=== PATIENT | male | born 1940 | race Caucasian/White ===

== ENCOUNTER 2017-04-29 15:50 | Emergency (ER) | payer MEDICARE, OTHER ==
[2017-04-29 16:23] LABS: BASOPHIL# 0.1 X 10^3uL (0.0-0.1); BASOPHILS 0.7 % (0.0-2.0); EOSINOPHILS 0.3 % (0.0-6.0); HEMATOCRIT 47.6 % (42.0-54.0); HEMOGLOBIN 16.3 g/dL (14.0-18.0); LYMPHOCYTES 9.2 % (20.0-40.0); LYMPHOCYTES# 0.8 X 10^3uL (0.8-3.8); MEAN CELL VOLUME 91.8 fL (80.0-100.0); MEAN CORPUS. HGB CONCENTRATION 34.1 g/dL (32.0-36.0); MEAN CORPUSCULAR HEMOGLOBIN 31.4 pg (29.0-35.0); MONOCYTES 9.6 % (2.0-10.0); MONOCYTES# 0.8 X 10^3uL (0.2-1.0); NEUTROPHILS 80.2 % (54.0-75.0); NEUTROPHILS# 6.8 X 10^3uL (2.6-6.7); RED BLOOD COUNT 5.18 X 10^6uL (4.20-6.10); RED CELL DISTRIBUTION WIDTH 15.1 % (11.5-14.5); WHITE BLOOD COUNT 8.5 X 10^3uL (3.9-10.7)
[2017-04-29 16:38] LABS: C-REACTIVE PROTEIN 87.2 mg/L (<10.0)
[2017-04-29 16:48] LABS: URIC ACID 5.3 mg/dL (3.5-8.5)
[2017-04-29] MEDS ORDERED: NORMAL SALINE 100 ML IV ONE (16:58)
[2017-04-29] MEDS ORDERED: ONDANSETRON HCL 4 MG/2 ML VIAL ONE (16:58)
[2017-04-29] MEDS ORDERED: AMPICILLIN/SULBACTAM 1.5 GM/10 ML VIAL IV ONE ×2 (16:58→23:00)
--- NOTE | 2017-04-29 17:37 | ER NURSING DOCUMENTATION ---
Nurse's Notes [facility] Name:Esequiel Ribeiro Jr Age:76 yrs Sex:Male :1940 Arrival Date:04/29/2017 Time:15:50 Bed1 Private MD: Diagnosis:Cellulitis of Hand-: Acute, Right Hand Presentation: 04/29 15:53 Acuity: CONG 3 st 16:00 Presenting complaint: Patient states: pt states he has had pain and swelling in the st right hand since yesterday. pt also states the hand has been warm pt denies any fevers or chills. Transition of care: Home. 16:00 Method Of Arrival: Private Vehicle st Triage Assessment: 16:00 General: Appears uncomfortable, Behavior is cooperative. Pain: Complains of pain in st right hand Pain currently is 9 out of 10 on a pain scale. Cardiovascular: No deficits noted. Respiratory: No deficits noted. GI: No deficits noted. Derm: right hand is reddened and warm to the touch. Musculoskeletal: Swelling present in right hand. Historical: - Allergies: No known drug Allergies; - Home Meds: 1. Coumadin Oral 2. Flomax Oral 3. Aspirin Oral 4. Amiodarone Oral 5. Nexium Oral 6. Primidone Oral 7. losartan oral 8. Lorazepam Oral 9. Lexapro Oral 10. temazepam Oral - PSHx: HEART SURGERY; - Tetanus: > 10 years will f/u with PCP. - Ebola Screening: : Patient denies exposure to infectious person. Patient denies travel to an Ebola-affected area in the 21 days before illness onset. . - Social history: Smoking status: Patient states was never smoker of tobacco. Patient uses alcohol occasionally. Patient/guardian denies using marijuana. Screenin:19 Infectious Disease Risk None. Abuse screen: Denies threats or abuse. Denies injuries st from another. pt feels safe at home. Nutritional screening: No deficits noted. Vital Signs: 16:18 BP 175 / 90; Pulse 71; Resp 18; Temp 98.6; Pulse Ox 92% on R/A; Pain 9/10; st 17:27 Pulse Ox 95% ; st 17:29 BP 157 / 74 (auto/); st [place] Coma Score: 16:47 Eye Response: spontaneous(4). Verbal Response: oriented(5). Motor Response: obeys cd commands(6). Total: 15. ED Course: 15:52 Patient arrived in ED. ama 15:53 Dalila Baxter, RN is Primary Nurse. co1 15:53 Triage completed. co1 16:12 Inserted peripheral IV: 20 gauge in left antecubital area and blood collected. st 16:19 Valuables Remains with patient Patient has correct armband on for positive st identification. Bed in low position. Pulse Ox - RN Monitoring Only NIBP On - RN Monitoring Only. 16:31 Second set of blood cultures drawn by me. st 16:39 Tre Mireles MD is Attending Physician. cd 16:54 Oxygen Oxygen administration via nasal cannula @ 2L/min. st 17:35 IV IV wrapped for d/c . st Administered Medications: 16:43 CANCELLED (Physician Discretion): Unasyn 3 grams IVPB once cd 16:51 Drug: Zofran 4 mg; Route: IVP; Infused Over: 2 mins; Site: left antecubital; st 17:35 Follow up: Response: Nausea is decreased st 16:53 Drug: Dilaudid 0.25 mg; Route: IVP; Site: left antecubital; st 17:35 Follow up: Response: Pain is decreased st 16:54 Drug: Unasyn 1.5 grams; Route: IVPB; Site: left antecubital; st 17:34 Follow up: IV Status: Completed infusion; IV Intake: 100ml st Intake: 17:34 IV: 100ml; Total: 100ml. st Outcome: 17:15 Discharge ordered by . cd 17:35 Discharged to home ambulatory. st 17:35 Condition: stable 17:35 Discharge instructions given to patient, Instructed on discharge instructions, follow up and referral plans. medication usage. 17:36 Patient [address] the ED[address] st 04/30 15:20 Discharge F/U Call: Unable to reach: left voicemail: mk2 Signatures: Tanya Rahman RN MEÑO st Dalila Baxter, RN RN co1 Tre Mireles MD MD cd Kruger, Meg, RN RN mk2 Erwin French, Reg Reg ama
--- NOTE | 2017-04-29 17:37 | ER PHYSICIAN DOCUMENTATION ---
Physician Documentation [facility] Name:Esequiel Ribeiro Jr Age:76 yrs Sex:Male :1940 Arrival Date:04/29/2017 Time:15:50 Bed1 Private MD: Tre Singh Disposition: 04/29 17:15 Chart complete. cd Disposition: 04/29/17 17:15 Discharged to Home/Self Care. Impression: Cellulitis of Hand - : Acute, Right Hand. - Condition is Good. - Discharge Instructions: CELLULITIS. - Medical Reconciliation form form. - Follow up: Emergency Department; When: Today; Reason: Recheck today's complaints, Continuance of care, The patient will return at 23:00 PM this evening for Unasyn 1.5 grams IVPB and again at 06:00 AM on Sunday April 30, 2017 for a third dose of Unasyn 1. - Problem is new. - Symptoms are unchanged. - Notes: Return tonight at 23:00 PM and tomorrow at 06:00 AM for Unasyn 1.5 gm IVPB. Take Tylenol 650mg by mouth every 6 hours for pain. Elevate your Right hand above your heart to get the swelling to come out. Return to the ER if any high fever, chills or problems arise. HPI: 16:43 This 76 yrs old Male presents to ER via Private Vehicle with complaints of cd Hand Pain - LEFT. 16:43 The patient or guardian reports pain, swelling, erythema and warmth. The complaints cd affect the right hand diffusely. Context: The problem was sustained at home, resulted from an unknown cause. Onset: The symptom(s)/episode began/occurred acutely, yesterday. Associated signs and symptoms: Pertinent negatives: cyanosis distally, decreased sensation distally, fever, nausea, numbness distally, tingling distally, vomiting. Severity of symptoms: At their worst the symptoms were moderate, in the emergency department the symptoms are unchanged. The patient has not experienced similar symptoms in the past. PAtient has a mixed drink occasionally.. Historical: - Allergies: No known drug Allergies; - Home Meds: 1. Coumadin Oral 2. Flomax Oral 3. Aspirin Oral 4. Amiodarone Oral 5. Nexium Oral 6. Primidone Oral 7. losartan oral 8. Lorazepam Oral 9. Lexapro Oral 10. temazepam Oral - PSHx: HEART SURGERY; - Tetanus: > 10 years will f/u with PCP. - Ebola Screening: : Patient denies exposure to infectious person. Patient denies travel to an Ebola-affected area in the 21 days before illness onset. . - Social history: Smoking status: Patient states was never smoker of tobacco. Patient uses alcohol occasionally. Patient/guardian denies using marijuana. ROS: 16:46 ENT: Negative for injury, pain, epistaxis and discharge. cd Cardiovascular: Negative for chest pain, palpitations, edema and pleuritic pain. Respiratory: Negative for shortness of breath, dyspnea on exertion, cough, sputum production, wheezing, hemoptysis and pleuritic chest pain. Abdomen/GI: Negative for abdominal pain, nausea, vomiting, diarrhea, constipation, distension, melena, hematochezia and hematemesis. Back: Negative for injury, pain or muscle spasms. : Negative for injury, bleeding, discharge, swelling, dysuria, frequency or urgency. 16:46 Neuro: Negative for headache, weakness, numbness, tingling, and seizure. cd 16:46 Constitutional: Negative for chills, fever, poor PO intake. 16:46 MS/extremity: Positive for erythema, swelling, tenderness, of the right hand, Negative for decreased range of motion, paresthesias. 16:46 Skin: Positive for cellulitis, swelling, of the right hand. 16:46 All other systems are negative. Exam: ENT: Nares patent. No nasal discharge, no septal abnormalities noted. Tympanic membranes are normal and external auditory canals are clear. Oropharynx with no redness, swelling, or masses, exudates, or evidence of obstruction, uvula midline. Mucous membranes moist. Cardiovascular: Regular rate and rhythm with a normal S1 and S2. No gallops, murmurs, or rubs. Normal PMI, no JVD. No pulse deficits. Respiratory: Lungs have equal breath sounds bilaterally, clear to auscultation and percussion. No rales, rhonchi or wheezes noted. No increased work of breathing, no retractions or nasal flaring. Abdomen/GI: Soft, non-tender, with normal bowel sounds. No distension or tympany. No guarding or rebound. No evidence of tenderness throughout. Back: No spinal tenderness. No costovertebral tenderness. Full range of motion. 16:47 Neuro: Awake and alert, GCS 15, oriented to person, place, time, and situation. cd Cranial nerves II-XII grossly intact. Motor strength 5/5 in all extremities. Sensory grossly intact. Cerebellar exam normal. Normal gait. 16:47 Constitutional: The patient appears alert, awake, non-diaphoretic, non-toxic, well developed, well nourished, anxious. 16:47 Musculoskeletal/extremity: Extremities: grossly normal except: noted in the right hand: erythema, swelling, tenderness, ROM: no acute changes, Circulation is intact in all extremities. Sensation intact. Joints: All joints appear normal with full range of motion. 16:47 Skin: Appearance: normal except for affected area, cellulitis, that is moderate, on the right hand. Vital Signs: 16:18 BP 175 / 90; Pulse 71; Resp 18; Temp 98.6; Pulse Ox 92% on R/A; Pain 9/10; st 17:27 Pulse Ox 95% ; st 17:29 BP 157 / 74 (auto/); st [place] Coma Score: 16:47 Eye Response: spontaneous(4). Verbal Response: oriented(5). Motor Response: obeys cd commands(6). Total: 15. MDM: 16:39 Patient medically screened. cd 16:48 Differential diagnosis: Cellulitis of right hand, Acute Gouty Attack. Data reviewed: cd vital signs, nurses notes, old medical records, lab test result(s), CBC, CRP, and as a result, I will continue to observe the patient, administer antibiotics Unasyn, prescribe pain medication, Dilaudid. Data interpreted: Pulse oximetry: on room air is 92 %. Interpretation: normal. 17:15 Counseling: I had a detailed discussion with the patient and/or guardian regarding: the cd historical points, exam findings, and any diagnostic results supporting the discharge/admit diagnosis, lab results, the need for outpatient follow up, The patient will return at 2300 tonight and 0600 tomorrow for IV Unasyn IVPB. If is is improved by morning, he will be switched to Augmentin 875 mg PO BID for an additional 10 days. 04/29 16:29 Order name: CBC AUTO DIF, MDIF/RMOR IF IND; Complete Time: 17:08 EDMS 04/29 16:40 Interpretation: Normal Except: NEUTROPHILS 80.2; Mild Left Shift. 04/29 16:42 Order name: C-REACTIVE PROTEIN; Complete Time: 17:08 [facility] 04/29 16:43 Interpretation: Abnormal: C-REACTIVE PROTEIN 87.2; Elevated. 04/29 16:54 Order name: URIC ACID; Complete Time: 17:08 [facility] 04/29 17:08 Interpretation: Normal: URIC ACID 5.3. 04/30 16:47 Order name: BLOOD CULTURE [facility] 04/30 16:47 Order name: BLOOD CULTURE [facility] 04/29 16:41 Order name: Iv Saline Lock; Complete Time: 16:53 04/29 16:54 Order name: Oxygen; Complete Time: 16:54 st Dispensed Medications: 16:43 CANCELLED (Physician Discretion): Unasyn 3 grams IVPB once cd 16:51 Drug: Zofran 4 mg; Route: IVP; Infused Over: 2 mins; Site: left antecubital; st 17:35 Follow up: Response: Nausea is decreased st 16:53 Drug: Dilaudid 0.25 mg; Route: IVP; Site: left antecubital; st 17:35 Follow up: Response: Pain is decreased st 16:54 Drug: Unasyn 1.5 grams; Route: IVPB; Site: left antecubital; st 17:34 Follow up: IV Status: Completed infusion; IV Intake: 100ml st Signatures: Tanya Rahman RN RN Tre Stout MD MD cd
[2017-04-29] MEDS ORDERED: [UNRECOGNIZED DRUG - OTHER] IV ONE (23:01)
== END 2017-04-29 17:37 | disposition home or self-care (01) ==
LOC: ER 15:50
DX: L03.113 Cellulitis of right upper limb (principal); Z79.01 Long term (current) use of anticoagulants; Z79.82 Long term (current) use of aspirin; Z79.899 Other long term (current) drug therapy
CPT/HCPCS: 84550; 85025; 86140; 87040; 96365; 96375; 99283; 99284; J0295; J1170; J2405